=== PATIENT | female | born 1940 | race Caucasian/White ===

== ENCOUNTER 2025-02-05 13:36 | Emergency (ER) | payer OTHER, SELFPAY ==
[2025-02-05 13:56] VITALS: BP 190/93
[2025-02-05 14:17] LABS: Urine Albumin 2+ (Neg - Trace); Urine Bilirubin Negative (Negative); Urine Character Clear (Clear); Urine Color Yellow; Urine Glucose Negative (Negative); Urine Ketone Negative (Negative); Urine Leukocyte 1+ (Negative); Urine Nitrite Negative (Negative); Urine Occult Blood Negative (Negative); Urine Urobilinogen 1+ (Neg - 1+)
[2025-02-05 14:45] LABS: Urine Squamous Cell 0-2 /LPF (Few)
[2025-02-05 14:46] LABS: Urine Red Blood Cell 0-2 /HPF (0-2); Urine Urothelial Cell 0-2 /LPF (FEW)
--- NOTE | 2025-02-05 16:41 | ED.GENMED ---
History of Present Illness
General
Chief Complaint: Back Pain
Source: patient
Exam Limitations: none
Time Seen by Provider: 02/05/25 16:10
History of Present Illness
History of Present Illness:
84-year-old female presents with 3 months worth of lower back pain that radiates down the leg. She had x-rays done a couple weeks ago through her family doctor and was told she had arthritis in her back. She received a course of steroid which
helped some but the pain returned. There is no associated bowel or bladder dysfunction as a pertains to retention she does note increased urinary frequency but denies dysuria. She denies any numbness. No fever. No known injury. She is using
aspirin otherwise for the comfort.
Past History
Past History
ED Past Medical History: HTN
Social History
Tobacco: Former smoker
Alcohol: Occasional
Family History
Family History: Negative Diabetes, Hypertension or CAD
Phy Exam
Physical Exam
Physical Exam:
General: Well-appearing female no respiratory distress
HEENT: Normocephalic atraumatic
Heart: Regular rate and rhythm
Lungs: Clear no wheeze
Musculoskeletal exam: Tender over the lumbosacral junction on the right side. Good range of motion to the lower extremity. Negative straight leg raise to the lower extremity. Bilateral patellar reflexes 1+
Vascular: Pulse right foot
Skin is warm no rash
Course
Orders/Labs/Results
Orders:
Orders
02/05/25 14:11
Urinalysis Reflex To Culture Urgent
Date Specimen was Collected: 02/05/25
Time Specimen was Collected: 14:00
Urine Microscopic Reflex Cult Urgent
Urine Culture Urgent
ARVIN Source: U
Specimen Description:
Date Specimen was Collected: 02/05/25
Time Specimen was Collected: 14:00
Abnormal Lab Results
02/05/25
14:11
Leukocyte Esterase Rfl 1+ A
(Negative)
Urine Albumin (Reflex) 2+ A
(Neg - Trace)
Vital Signs
Initial and Last Documented VS:
Initial Vital Signs
Temp Pulse Resp BP Pulse Ox
98.5 F 65 18 190/93 97
02/05/25 13:56 02/05/25 13:56 02/05/25 13:56 02/05/25 13:56 02/05/25 13:56
Last Documented Vital Signs
Temp Pulse Resp BP Pulse Ox
98.5 F 65 18 190/93 97
02/05/25 13:56 02/05/25 13:56 02/05/25 13:56 02/05/25 13:56 02/05/25 13:56
MDM/Problems Addressed
Differential Diagnosis Includes:
Low back pain with radiation down the right leg. No red flags to suggest cauda equina. No fever to suggest infectious source. Suspect radiculopathy. She already took a dose of steroid. Will add gabapentin and continue Tylenol and ibuprofen.
Will refer her to back pain specialist. She is companied by her daughter who lives with her. She has been ambulatory.
*Critical Care Note
Total Time (30-74mins, 75-104mins- exclusive of procedures): Not Applicable
ED Attending Note
-
Portions of this chart may have been created with voice recognition software.� Occasional wrong word or��sound alike� substitutions may have occurred due to the inherent limitations of voice recognition software.
Discharge Plan
Departure
Patient Disposition: Home (Routine Discharge)
Date of Disposition: 02/05/25
Time of Disposition: 16:44
Patient with high blood pressure during this ER visit?: No
Discharge Problem:
Acute lumbar radiculopathy
Instructions: Radiculopathy (DC)
Prescriptions:
New
gabapentin 100 mg capsule
100 mg PO TID Qty: 21 0RF
No Action
meclizine 12.5 MG tablet
12.5 mg PO Q8HPRN PRN (Reason: dizziness)
furosemide 20 MG tablet
20 mg PO DAILYPRN PRN (Reason: swelling)
losartan [Cozaar] 100 MG tablet
100 mg PO DAILY
rosuvastatin 10 MG tablet
10 mg PO QPM
cholecalciferol (vitamin D3) 2,000 UNITS tablet
2,000 units PO DAILY
amlodipine 5 MG tablet
5 mg PO BID Qty: 60 0RF
aspirin 81 MG tablet,chewable
81 mg PO DAILY 0RF
Referrals:
Srinath Finnegan DO [Family Provider, Family Practice]
Lam Yeh MD [Active, Orthopedics]
Activity Restrictions/Additional Instructions:
Continue with Tylenol every 4 hours if needed for pain. You may add ibuprofen every 6 hours for pain. Use gabapentin up to 3 times a day as needed. Follow-up with back pain specialist. Return here if needed
Interventions
Interventions:
*Risk Screen - Suicide Last Done: 02/05/25 13:56
*General Assessment Last Done: 02/05/25 13:56
*Neglect/Abuse Screening Last Done: 02/05/25 14:16
*ED COVID-19 Vaccine History Last Done: 02/05/25 14:16
ED-Musculoskeletal Assessment Last Done: 02/05/25 14:16
Discharge Date and Time
Print Language: SAO TOMEAN
== END 2025-02-05 16:54 | disposition home or self-care (01) ==
LOC: EMR 13:36
PROVIDERS: EMERGENCY PHYSICIAN Emergency Medicine; FAMILY PHYSICIAN Family Medicine
DX: M54.16 Radiculopathy, lumbar region (principal); M79.604 Pain in right leg; I10 Essential (primary) hypertension; M13.88 Other specified arthritis, other site; Z87.891 Personal history of nicotine dependence; Z79.82 Long term (current) use of aspirin
CPT/HCPCS: 99283; 81003; 81015; 87086

== ENCOUNTER 2025-02-18 14:41 | Observation (INO) | payer OTHER, SELFPAY ==
[2025-02-18 09:40] VITALS: BP 117/98
--- NOTE | 2025-02-18 12:06 | ED.GENMED ---
History of Present Illness
General
Chief Complaint: Weakness
Source: patient and family
Exam Limitations: none
Time Seen by Provider: 02/18/25 10:32
Nursing documentation reviewed up to this point in time: agreed with
History of Present Illness
History of Present Illness:
Patient presents to ED secondary to worsening generalized weakness over the past 3 days, associated with multiple falls. Patient does have bruising noted over her left midfoot. Denies headache. Denies neck pain. Denies loss of sensation or
weakness. Patient unsure of why she may have fallen. However, patient was found lying on the bathroom floor, when her daughter visited this morning. In addition, patient also fell yesterday, prompting paramedics to visit her house for assistance.
Patient does report decreased appetite, and is unsure about her hydration status. Denies recent weight loss. No recent change in medications or diet. In addition, patient has been evaluated by [facility] orthopedic surgeon for ongoing back and
hip pain. There is an outpatient MRI ordered for this week.
Past History
Past History
ED Past Medical History: HTN
Social History
Tobacco: Former smoker
Alcohol: Occasional
Family History
Family History: Negative Diabetes, Hypertension or CAD
Review of Systems
Review of Systems
Allergies reviewed?: Yes
All Other Systems: ROS reviewed and negative except as documented in HPI and ROS
Constitutional: Reports no symptoms
Respiratory: Reports no symptoms
Cardiac: Reports no symptoms
ABD/GI: Reports no symptoms
Musculoskeletal: Reports no symptoms
Skin: Reports other (Foot ecchymosis)
Neurological: Reports weakness; Denies dizzy or headache
Phy Exam
Physical Exam
Physical Exam:
Physical Exam
General: mild distress, not acutely ill. afebrile. weak appearing
Head: nc/at. eomi
Neck: supple. normal range of motion.
Heart: s1/s2 regular rate and rhythm
Lungs: no acute respiratory distress. clear bilaterally
Abdomen: normal bowel sounds. not tender.
Neuro: alert and oriented x 3. no focal neurological deficits
Skin: ecchymosis/swelling noted over dorsal aspect of left foot, at level of midfoot
Psychiatric: well kept. interactive and cooperative
Extremities: no obvious deformity
Course
Orders/Labs/Results
Orders:
Orders
02/18/25 09:40
Electrocardiogram (*1) Urgent
Reason for Study: Chest Pain
EKG- Treatment ONCE
02/18/25 11:35
CT Head W/o Iv Contrast Urgent
Comment:
Reason For Exam: mental status change w falls
0.9% Sodium Chloride 500 ml [Nss] 500 ml IV BOLUS
CR Foot - Left Min 3 Views Urgent
Comment:
Reason For Exam: swelling/ecchymosis over midfoot
02/18/25 11:36
Physical Therapy Consult [Pt Eval And Treat] Urgent
Activity Level: Ambulate
02/18/25 12:28
Complete Blood Count/With Diff Urgent
02/18/25 12:36
Urinalysis Reflex To Culture Urgent
Date Specimen was Collected: 02/18/25
Time Specimen was Collected: 11:47
Urine Microscopic Reflex Cult Urgent
02/18/25 13:15
Comprehensive Metabolic Panel Urgent
Creatine Phosphokinase Urgent
Comment: ADD ON
Magnesium Urgent
02/18/25 13:56
0.9% Sodium Chloride 500 ml [Nss] 500 ml IV BOLUS
02/18/25 14:15
Admit/Transfer Patient As Directed
Co-Sign Provider:
Level of Care: Observation services
Assign to:: Medical/Surgical
Physician / Group: tristen
Diagnosis: falls
PRN Pain Medication Management As Directed
May give lesser potent ordered pain med per pt: Yes
preference::
Protocol:: Medication orders for pain may be administered in a
manner that supports deferring to patient preference
when the pt is:
- Requesting an ordered lesser potent pain medication.
Least to most potent pain medications are defined
as: acetaminophen < NSAID < tramadol < opioids
(morphine, oxycodone, hydromorphone).
- Requesting a lesser dose of the same medication IF
ORDERED.
- Requesting a less intrusive route of administration
if both routes are prescribed by the provider (PO <
IV).
02/18/25 14:16
Code Status As Directed
Resuscitation Status: Full Code
02/18/25 Dinner
Regular
At Your Request: Limited Participation
02/18/25 16:55
Acetaminophen [Tylenol] 650 mg PO Q4HPRN PRN
02/18/25 16:55
Add On- LAB Routine
Tests Added?: CK
Case Management Consult ONCE
Case Management Consult: Discharge Planning
Activity As Directed
Activity Level: As Tolerated
Vital Signs As Directed
Frequency: Per unit guidelines
DX Deep Vein Thrombosis Video Routine
02/18/25 20:00
Heparin 5,000 units SC Q12
02/19/25 06:00
Complete Blood Count/With Diff IN AM
Comprehensive Metabolic Panel IN AM
Abnormal Lab Results
02/18/25 02/18/25 02/18/25
12:28 12:36 13:15
MCHC 31.9 L g/dL
(33.0-37.0)
RDW 14.6 H %
(11.5-14.5)
Absolute Neuts (auto) 7.4 H 10^3/uL
(1.4-6.5)
Absolute Lymphs (auto) 0.9 L 10^3/uL
(1.2-3.4)
Absolute Monos (auto) 0.8 H 10^3/uL
(0.1-0.6)
Neutrophils % 79.8 H %
(42.2-75.2)
Lymphocytes % 10.1 L %
(20.5-51.1)
Chloride 109 H mmol/L
(98-107)
Glucose 110 H mg/dl
(70-99)
Calcium 10.7 H mg/dl
(8.4-10.2)
Total Bilirubin 1.5 H mg/dl
(0.2-1.3)
Urine Ketones 1+ A
(Negative)
Urine Albumin (Reflex) 1+ A
(Neg - Trace)
02/18/25 12:28
02/18/25 13:15
Vital Signs
Initial and Last Documented VS:
Initial Vital Signs
Temp Pulse Resp BP Pulse Ox
98 F 65 16 117/98 95
02/18/25 09:40 02/18/25 09:40 02/18/25 09:40 02/18/25 09:40 02/18/25 09:40
Last Documented Vital Signs
Temp Pulse Resp BP Pulse Ox
97.9 F 72 20 132/73 98
02/18/25 19:00 02/18/25 19:58 02/18/25 19:00 02/18/25 19:58 02/18/25 19:00
MDM/Problems Addressed
MDM/Problems Addressed:
Patient evaluated by physical therapy, who feels the patient is unstable to discharge home at this time and recommends acute rehab treatment. Discussed with case management, who unfortunately does not feel the patient can be transferred to acute
rehab facility today. In addition, in light of patient's ongoing pain which may be contributory falls without clear etiology, there is a consideration given to potentially obtain MRI as an inpatient. As such, will reach out to hospitalist service
for further evaluation and treatment.
*Critical Care Note
Total Time (30-74mins, 75-104mins- exclusive of procedures): Not Applicable
ED Attending Note
-
Portions of this chart may have been created with voice recognition software.� Occasional wrong word or��sound alike� substitutions may have occurred due to the inherent limitations of voice recognition software.
Discharge Plan
Departure
Patient Disposition: Admit
Date of Disposition: 02/18/25
Time of Disposition: 14:03
Presentation/result/management discussed w/ accepting MD/DO: Hospitalist
Patient with high blood pressure during this ER visit?: No
Discharge Problem:
Weakness, Ambulatory dysfunction, Hip pain
Interventions
Interventions:
*Risk Screen - Suicide Last Done: 02/18/25 09:36
*General Assessment Last Done: 02/18/25 09:36
*ED COVID-19 Vaccine History Last Done: 02/18/25 10:00
*Nursing Disposition Last Done: 02/18/25 16:41
ED- Cardiac Assessment Last Done: 02/18/25 10:00
ED-Musculoskeletal Assessment Last Done: 02/18/25 10:00
ED- Neurological Assessment Last Done: 02/18/25 10:00
ED- Pulmonary Assessment Last Done: 02/18/25 10:00
Discharge Date and Time
Discharge Date/Time: 02/18/25 16:41
[2025-02-18] MEDS: NSS 500 IV ×2 (12:29→14:31)
[2025-02-18 12:42] LABS: % Basophils 0.3 % (0-2); % Eosinophils 1.2 % (0-6); % Immature Granulocytes 0.2 % (0-0.5); % Lymphocytes 10.1 % (20.5-51.1); % Monocytes 8.4 % (1.7-9.3); % Neutrophils 79.8 % (42.2-75.2); Absolute Eosinophils 0.1 10^3/uL (0-0.7); Absolute Lymphocytes 0.9 10^3/uL (1.2-3.4); Absolute Monocytes 0.8 10^3/uL (0.1-0.6); Absolute Neutrophils 7.4 10^3/uL (1.4-6.5); Hematocrit 44.8 % (37.0-47.0); Hemoglobin 14.3 g/dL (12.0-16.0); Mean Corp Hgb Conc. 31.9 g/dL (33.0-37.0); Mean Corpuscular Volume 94.1 fL (81.0-99.0); Mean Platelet Volume 9.8 fL (7.4-10.4); Nucleated Red Blood Cells % 0 %; Platelet Count 223 10^3/uL (130-400); Red Blood Cell Count 4.76 10^6/uL (4.20-5.40); Red Cell Dist. Width 14.6 % (11.5-14.5); White Blood Cell Count 9.2 10^3/uL (4.8-10.8)
[2025-02-18 13:29] LABS: Urine Albumin 1+ (Neg - Trace); Urine Bilirubin Negative (Negative); Urine Color Yellow; Urine Glucose Negative (Negative); Urine Ketone 1+ (Negative); Urine Leukocyte Negative (Negative); Urine Nitrite Negative (Negative); Urine Occult Blood Negative (Negative); Urine Specific Gravity 1.015 (<1.030); Urine Urobilinogen Negative (Neg - 1+)
[2025-02-18 13:37] LABS: Urine Character Slightly Cloudy (Clear)
[2025-02-18 13:39] LABS: ALT (SGPT) 13 U/L (0-35); AST (SGOT) 22 U/L (14-36); Albumin 4.4 g/dl (3.5-5.0); Alkaline Phosphatase 53 U/L (38-126); Blood Urea Nitrogen 16 mg/dl (7-17); Calcium 10.7 mg/dl (8.4-10.2); Carbon Dioxide 28 mmol/L (22-30); Chloride 109 mmol/L (98-107); Glucose 110 mg/dl (70-99); Magnesium 2.2 mg/dl (1.6-2.3); Potassium 3.9 mmol/L (3.5-5.1); Sodium 144 mmol/L (135-145); Total Bilirubin 1.5 mg/dl (0.2-1.3); Total Protein 7.5 g/dl (6.3-8.2); eGFR > 60.00
[2025-02-18 13:57] VITALS: O2SAT 95
--- NOTE | 2025-02-18 14:26 | HPS.HSE ---
Addendum entered and electronically signed by Chester Jackson MD 02/18/25 18:49:
PRN labetalol for Blood Pressure 190.
Original Note:
Family Physician
-
Family Physician: Srinath Finneagn
Chief Complaint
-
falls
History of Present Illness
84-year-old female with past medical history of hypertension, hyperlipidemia, possible TIA, uterine cancer, presenting for generalized weakness over the past 3 days associate with multiple falls unwitnessed by daughter. Patient does have bruising
noted over her left midfoot. Denies headache. Denies neck pain. Denies loss of sensation or weakness. Patient unsure why she may have fallen however she was found lying on the bathroom floor when her daughter visited this morning. She also fell
yesterday prompting paramedics to visit her house. She has decreased appetite. Denies weight loss.
She has been having with walker for the past several weeks.
She has been evaluated by [facility] orthopedic surgery for ongoing back and hip pain. She has outpatient MRI ordered this week. Falls have been occurring since this time.
Patient complains of increased urinary frequency. Denies any burning or pain. No fevers or chills. No cough, vomiting or diarrhea.
Medical History
Past Medical History
Past Medical History: Reports Other ( hypertension, hyperlipidemia, possible TIA, uterine cancer,)
Past Surgical History: Reports None
Social History
Tobacco: Non-smoker
Alcohol: None
Drug: None
Family History
Family History: Not pertinent
Allergies / Home Medications
Allergies reflects when Allergies were last updated in [email or web address].
Home Medications with original date entered in [email or web address]
Allergy/Medication List:
Allergies
Allergy/AdvReac Type Severity Reaction Status Date / Time
No Known Allergies Allergy Verified 02/18/25 09:45
Home Medications
cholecalciferol (vitamin D3) 50 mcg (2,000 unit) tablet 2,000 units PO DAILY Supplement 02/28/21
furosemide 20 mg tablet 20 mg PO DAILYPRN PRN swelling 02/28/21
losartan 100 mg tablet (Cozaar) 100 mg PO DAILY Heart disease/condition 02/28/21
meclizine 12.5 mg tablet 12.5 mg PO Q8HPRN PRN dizziness 02/28/21
rosuvastatin 10 mg tablet 10 mg PO QPM High cholesterol 02/28/21
amlodipine 5 mg tablet 5 mg PO BID #60 tabs 03/03/21
gabapentin 100 mg capsule 100 mg PO TID #21 caps 02/05/25
acetaminophen 325 mg tablet (Tylenol) 325 mg PO DAILY 02/18/25
ibuprofen 200 mg tablet (Advil) 400 mg PO DAILYPRN PRN mild pain 02/18/25
Review of Systems
-
History Source: Patient
A 12 point ROS was completed and negative except as noted: Yes
Constitutional: Reports No Symptoms
EENT: Reports No Symptoms
Respiratory: Reports No Symptoms
Cardiac: Reports No Symptoms
Abdomen/GI: Reports No Symptoms
: Reports See HPI
Musculoskeletal: Reports See HPI
Skin: Reports No Symptoms
Neurological: Reports No Symptoms
Endocrine: Reports No Symptoms
Hematologic/Lymphatic: Reports No Symptoms
Psych: Reports No Symptoms
Physical Exam
Vital Signs
Vital Signs
Temp Pulse Resp BP Pulse Ox
98 F 65 16 117/98 95
02/18/25 09:40 02/18/25 09:40 02/18/25 09:40 02/18/25 09:40 02/18/25 09:40
Physical Exam
General: Well Developed, Well Nourished and No Apparent Distress
HEENT: NormoCephalic, Moist mucous membranes and Atraumatic
Respiratory: Clear
Cardiac: S1/S2 and Regular Rhythm; No Murmur or Rub
GI: Soft, Non Tender, Non Distended and Normal Bowel Sounds; No Organomegaly
Rectal: Deferred by Provider
Musculoskeletal: No Clubbing, No Cyanosis and No Edema
Skin: No Rash
Neuro: Nonfocal/grossly intact
Laboratory Results
-
02/18/25 12:28
02/18/25 13:15
Laboratory Results
Total Bilirubin 1.5 mg/dl (0.2-1.3) H 02/18/25 13:15
AST 22 U/L (14-36) 02/18/25 13:15
ALT 13 U/L (0-35) 02/18/25 13:15
Alkaline Phosphatase 53 U/L (38-126) 02/18/25 13:15
Data Reviewed
-
Lab Data: Labs Reviewed by me
Old Records: Reviewed
Impression/Plan
-
IMPRESSION:
PLAN:
# Ambulatory dysfunction/falls secondary to lower back/hip pain
- CT head shows no acute abnormality
-Foot x-ray pending
-Check CK
-IV fluids given
- As per PT patient unsafe to be discharged home
- Case management
# Lower back/hip pain
- Outpatient MRI scheduled by orthopedics
# Urinary frequency
- Check urinalysis
# Left ankle injury
- Ankle x-ray pending
Essential hypertension
- Continue amlodipine, losartan
Hyperlipidemia
- Continue statin
History of possible TIA
- Continue aspirin
Uterine cancer
Full code
DVT prophylaxis�heparin
Regular diet
[2025-02-18 15:23] LABS: Urine Amorphous Seen; Urine Squamous Cell 0-2 /LPF (Few); Urine Urothelial Cell 0-2 /LPF (FEW)
[2025-02-18 15:24] LABS: Urine Red Blood Cell 0-2 /HPF (0-2); Urine White Cell 0-2 /HPF (0-5)
--- NOTE | 2025-02-18 15:46 | CM ---
CM met with pt and daughter bedside. Lives with daughter, [facility], [address], first floor half bath, full flight to BR and full bath
Typically ambulates independently with walker, also has quad cane
Typically independent with personal care
Daughter reports frequent falls over past few weeks, daughter now needing to assist with personal care.
Alert and oriented at baseline, daughter denies cognitive impairment
Denies financial insecurities
Pt has history at [facility] is first choice but agreeable to additional referrals
PCP: Srinath Finnegan - recently retired, under care of new partner, name unknown
Pharmacy: [facility]
SNF recs by PT, family in agreement
Referral sent via [facility] and pending.
Pt will require IBC Auth
STEEL completed and copy provided
Dispo: SNF pending auth
--- NOTE | 2025-02-18 16:55 | PTCARENOTE ---
Received pt from ED via stretcher. Daughter at bedside. Stretcher placed next to bed, pt pulled over to bed with assist x3. AAOx 1-2. Confused, forgetful. Bed alarm placed and plugged in. Daughter instructed on how to use call hussein and phone, pt
unable to verbalize understanding. Incontinent, purewick in place. Assessed and unable to orient to room. Call hussein within close reach.
[2025-02-18 17:01] VITALS: BMI 28.2
[2025-02-18 17:30] VITALS: BP 190/117
[2025-02-18 17:37] LABS: Creatine Phosphokinase 45 U/L (30-135)
[2025-02-18] MEDS: TRANDATE 10 MG IV (17:57)
--- NOTE | 2025-02-18 17:57 | PTCARENOTE ---
Blood pressure increased, made aware, new order provided, see MAR. Will recheck in one hour.
[2025-02-18 19:00] VITALS: BP 135/71
[2025-02-18] MEDS: HEPARIN 5000 UNITS SC (19:54)
[2025-02-18] MEDS: DESENEX/MITRAZOL/ZEASORB 1 APPLIC TOPICAL (19:54)
[2025-02-18] MEDS: NORVASC 5 MG PO (19:58)
[2025-02-18 23:00] VITALS: BP 164/97
[2025-02-19] VITALS (8 sets, daily range): BP systolic 115–175; BP diastolic 58–106; PULSE 74; O2SAT 98
[2025-02-19] MEDS: TRANDATE 10 MG IV (04:15)
[2025-02-19 06:55] LABS: % Basophils 0.5 % (0-2); % Eosinophils 4.1 % (0-6); % Immature Granulocytes 0.4 % (0-0.5); % Lymphocytes 19.9 % (20.5-51.1); % Monocytes 11.5 % (1.7-9.3); % Neutrophils 63.6 % (42.2-75.2); Absolute Eosinophils 0.2 10^3/uL (0-0.7); Absolute Lymphocytes 1.1 10^3/uL (1.2-3.4); Absolute Monocytes 0.6 10^3/uL (0.1-0.6); Absolute Neutrophils 3.5 10^3/uL (1.4-6.5); Hematocrit 38.7 % (37.0-47.0); Hemoglobin 12.5 g/dL (12.0-16.0); Mean Corp Hgb Conc. 32.3 g/dL (33.0-37.0); Mean Corpuscular Hgb 30.2 pg (27.0-31.0); Mean Corpuscular Volume 93.5 fL (81.0-99.0); Nucleated Red Blood Cells % 0 %; Platelet Count 204 10^3/uL (130-400); Red Blood Cell Count 4.14 10^6/uL (4.20-5.40); Red Cell Dist. Width 14.6 % (11.5-14.5); White Blood Cell Count 5.6 10^3/uL (4.8-10.8)
[2025-02-19 07:09] LABS: ALT (SGPT) 10 U/L (0-35); AST (SGOT) 14 U/L (14-36); Albumin 3.4 g/dl (3.5-5.0); Alkaline Phosphatase 48 U/L (38-126); Blood Urea Nitrogen 16 mg/dl (7-17); Calcium 10.1 mg/dl (8.4-10.2); Carbon Dioxide 24 mmol/L (22-30); Chloride 114 mmol/L (98-107); Estimated Creatinine Clearance 45 ml/min; Glucose 111 mg/dl (70-99); Potassium 3.4 mmol/L (3.5-5.1); Sodium 143 mmol/L (135-145); Total Bilirubin 1.2 mg/dl (0.2-1.3); eGFR > 60.00
[2025-02-19] MEDS: KCL 40 MEQ PO (08:45)
[2025-02-19] MEDS: VITAMIN D3 (cholecalciferol) 50 MCG PO (08:45)
[2025-02-19] MEDS: TYLENOL 325 MG PO (08:45)
[2025-02-19] MEDS: NORVASC 5 MG PO ×2 (08:45→22:03)
[2025-02-19] MEDS: HEPARIN 5000 UNITS SC ×2 (08:45→22:02)
[2025-02-19] MEDS: COZAAR 100 MG PO (08:45)
[2025-02-19] MEDS: DESENEX/MITRAZOL/ZEASORB 1 APPLIC TOPICAL ×2 (08:49→22:02)
--- NOTE | 2025-02-19 10:44 | CM ---
CM met with pt and daughter bedside. Advanced Directive packet given.
[2025-02-19] MEDS: NEURONTIN 100 MG PO (13:01)
--- NOTE | 2025-02-19 13:19 | CM ---
Case Management following for discharge to SNF; [facility] is pt's preferred facility.
[facility] has accepted, pending bed availability at discharge.
--- NOTE | 2025-02-19 15:41 | W.PN.HOSP.TC ---
Today's Communication/Plan
-
Assessment / Plan
Assessment / Plan
General: No Apparent Distress, Comfortable and Conversant
HEENT: NormoCephalic, Moist mucous membranes, Atraumatic
Respiratory: Clear and Non Labored Respirations
Cardiac: S1/S2 and Regular Rhythm; No Rub or Gallop
GI: Soft, Non Tender, Non Distended and Normal Bowel Sounds
Musculoskeletal: No Edema, no deformity, right hip joint tenderness with passive and active range of motion, left knee joint tenderness with active range of motion
Skin: Warm and dry
: NO [place]
Neuro: Awake, Alert, Nonfocal/grossly intact
Psych: Calm and cooperative
Ms. Harris is an 84-year-old female with a medical history of hypertension, TIA, arthritis (status post bilateral TKA), and uterine cancer who presented after weakness and multiple falls at home for 3 days prior to arrival. She had some bruising
over her left midfoot but no acute abnormalities on x-ray. Patient does not remember how she fell. She is being followed by [facility] orthopedics in the outpatient setting for ongoing back and hip pain and has an outpatient MRI scheduled in the
near future for further evaluation. She was admitted for SNF placement.
Ambulatory dysfunction:
- No focal deficits on exam, right hip and left knee joint movement significantly limited by pain, no evidence of infection
- Continue multimodal pain treatment
- PT/OT recommending SNF, placement pending
- Will need ongoing outpatient orthopedic follow-up and MRI
Hypertension:
- Well-controlled with home amlodipine 5 mg twice daily and losartan 100 mg daily
Cerebrovascular disease:
- Continue low-dose aspirin and statin
DVT prophylaxis: Subcu heparin
CODE STATUS: Full code
Total time spent on today's encounter was 45 minutes
Anticipated Discharge: Within 24 hours
Subjective/Interval History
-
Date of Service: February 19, 2025
Patient was seen and examined at bedside this morning. No acute distress. Awaiting SNF placement.
Objective Data
-
Labs:
Laboratory Results
02/19/25
06:34
WBC 5.6
Hgb 12.5
Hct 38.7
Plt Count 204
Sodium 143
Potassium 3.4 L
Chloride 114 H
Carbon Dioxide 24
BUN 16
Creatinine 0.9
Glucose 111 H
Calcium 10.1
Total Bilirubin 1.2
AST 14
ALT 10
Alkaline Phosphatase 48
Vital Signs:
Vital Signs
Temp Pulse Resp BP Pulse Ox
97.7 F 82 16 115/58 96
02/19/25 15:04 02/19/25 15:04 02/19/25 15:04 02/19/25 15:04 02/19/25 15:04
Review of Systems
-
History Source: Patient
All other systems: Reviewed and negative
Musculoskeletal: Reports Joint Pain (Right hip and left knee pain)
Physical Exam
-
General: No Apparent Distress
--- NOTE | 2025-02-19 15:43 | CM ---
CM met with pt and daughter to discuss discharge planning. Pt has been accepted for transfer to [facility] for SNF. Insurance authorization will be obtained and transportation arranged tomorrow.
IMM reviewed with pt and her daughter; IMM signed and copy placed in chart.
Plan: Transfer to [facility] tomorrow after insurance authorization obtained.
--- NOTE | 2025-02-19 16:32 | CM ---
CM met with pt and daughter to discuss discharge planning. Pt has been accepted for transfer to [facility] for SNF. Insurance authorization will be obtained and transportation arranged tomorrow.
Plan: Transfer to [facility] tomorrow after insurance authorization obtained.
[2025-02-19] MEDS: DICLOFENAC 1% TOPICAL GEL 100 GRAM TOPICAL (17:01)
[2025-02-19] MEDS: CRESTOR 10 MG PO (17:01)
[2025-02-19] MEDS: DICLOFENAC 1% TOPICAL GEL 4 GRAM TOPICAL (22:13)
[2025-02-20 03:00] VITALS: BP 171/92
--- NOTE | 2025-02-20 04:18 | DOWNTIME ---
Addendum entered by Heidi Flores RN 02/20/25 14:08:
Please note the [employer] client [employer] Supervisor Downtime was on 02/21/2025 from 0100 to 02/20/2025.
Original Note:
There was a [employer] Client [employer]visor Downtime on 02/19/2025 from 0100 to 02/20/2025 at 0415. Downtime documentation of patient's care, including medication administrations, has been reconciled in the electronic record per guidelines. Refer to the
patient's paper chart under the miscellaneous tab to see printed paper medication records and downtime forms.
[2025-02-20 07:30] VITALS: BP 161/94
[2025-02-20] MEDS: COZAAR 100 MG PO (08:51)
[2025-02-20] MEDS: HEPARIN 5000 UNITS SC (08:52)
[2025-02-20] MEDS: NORVASC 5 MG PO (08:52)
[2025-02-20] MEDS: DESENEX/MITRAZOL/ZEASORB 1 APPLIC TOPICAL (08:52)
[2025-02-20] MEDS: TYLENOL 325 MG PO (08:52)
[2025-02-20] MEDS: ASPIR LOW (ENTERIC COATED) 81 MG PO (08:52)
[2025-02-20] MEDS: VITAMIN D3 (cholecalciferol) 50 MCG PO (08:52)
[2025-02-20] MEDS: DICLOFENAC 1% TOPICAL GEL 100 GRAM TOPICAL (08:55)
--- NOTE | 2025-02-20 10:01 | CM ---
Addendum entered by Makenna Reyes 02/20/25 12:19:
[facility] Report:[phone]
[facility]
Addendum entered by Makenna Reyes 02/20/25 10:49:
[facility] authorization [id number]
Original Note:
CM contacted [facility] for [facility] authorization; authorization completed with Herman at [facility] and he will call back with authorization number. Plan for transfer to [facility] today via ambulance.
--- NOTE | 2025-02-20 11:15 | W.DCSUMMARY ---
Discharge Summary
Discharge Data
Date of Admission: 02/18/25
Date of Discharge: 02/20/25
Total time spent discharging patient (in min): 44
-
Pending Results: No
Hospital Course
Ms. Harris is an 84-year-old female with a medical history of hypertension, TIA, arthritis (status post bilateral TKA), and uterine cancer who presented after weakness and multiple falls at home for 3 days prior to arrival. She had some bruising
over her left midfoot but no acute abnormalities on x-ray. Patient does not remember how she fell. She is being followed by [facility] orthopedics in the outpatient setting for ongoing back and hip pain and has an outpatient MRI scheduled in the
near future for further evaluation. She was admitted for SNF placement. No focal deficits were noted on exam although her movement was significantly limited by pain in her right hip joint and left knee. Her labs were generally unremarkable. Her
blood pressure was initially elevated however was much better controlled after continuing her home losartan and amlodipine. She was evaluated by PT/OT who recommended SNF which has been arranged. She was medically stable at time of hospital
discharge. She will need ongoing follow-up with her primary care physician.
General: No Apparent Distress, Comfortable and Conversant
HEENT: NormoCephalic, Moist mucous membranes, Atraumatic
Respiratory: Clear and Non Labored Respirations
Cardiac: S1/S2 and Regular Rhythm; No Rub or Gallop
GI: Soft, Non Tender, Non Distended and Normal Bowel Sounds
Musculoskeletal: No Edema, no deformity, right hip joint tenderness with passive and active range of motion, left knee joint tenderness with active range of motion
Skin: Warm and dry
: NO [place]
Neuro: Awake, Alert, Nonfocal/grossly intact
Psych: Calm and cooperative
Discharge Plan
-
Patient Disposition: Fpc/SNF
Discharge Diagnosis/Procedures: Ambulatory dysfunction
Diet: Regular
Activity: With assistance
Activity Restrictions/Additional Instructions:
Ms. Harris is an 84-year-old female with a medical history of hypertension, TIA, arthritis (status post bilateral TKA), and uterine cancer who presented after weakness and multiple falls at home for 3 days prior to arrival. She had some bruising
over her left midfoot but no acute abnormalities on x-ray. Patient does not remember how she fell. She is being followed by [facility] orthopedics in the outpatient setting for ongoing back and hip pain and has an outpatient MRI scheduled in the
near future for further evaluation. She was admitted for SNF placement. No focal deficits were noted on exam although her movement was significantly limited by pain in her right hip joint and left knee. Her labs were generally unremarkable. Her
blood pressure was initially elevated however was much better controlled after continuing her home losartan and amlodipine. She was evaluated by PT/OT who recommended SNF which has been arranged. She was medically stable at time of hospital
discharge. She will need ongoing follow-up with her primary care physician.
Referrals:
Srinath Finnegan DO [Family Provider, [facility]]
Prescriptions:
New
aspirin 81 mg Tablet,Delayed Release (Dr/Ec)
81 mg PO DAILY 30 Days Qty: 30 0RF
Continued
meclizine 12.5 MG tablet
12.5 mg PO Q8HPRN PRN (Reason: dizziness)
furosemide 20 MG tablet
20 mg PO DAILYPRN PRN (Reason: swelling)
losartan [Cozaar] 100 MG tablet
100 mg PO DAILY
rosuvastatin 10 MG tablet
10 mg PO QPM
cholecalciferol (vitamin D3) 2,000 UNITS tablet
2,000 units PO DAILY
amlodipine 5 MG tablet
5 mg PO BID Qty: 60 0RF
acetaminophen [Tylenol] 325 mg Tablet
325 mg PO DAILY
ibuprofen [Advil] 200 mg Tablet
400 mg PO DAILYPRN PRN (Reason: mild pain)
gabapentin 100 mg capsule
100 mg PO DAILY@1300
Discharge Orders:
Discharge Patient (As Directed); Ordered 02/20/25
Ordered By: Ricardo Patel
Discharge Date and Time
Print Language: ARABIC
[2025-02-20 11:20] VITALS: BP 159/92
--- NOTE | 2025-02-20 13:13 | CM ---
Addendum entered by Makenna Reyes 02/20/25 13:33:
Pt's daughter Will notified that ambulance arrived and her mother is on her way to [facility]. Daughter was thankful for the update and will go to [facility] later this afternoon.
Original Note:
CM spoke with pt's daughter to make her aware of discharge plans to [facility]. Ambulance transport arranged; awaiting their arrival.
CM to contact pt's daughter to let her know when the ambulance is leaving to take her to [facility]. Daughter intends to visit after her mother is settled.
Plan: Discharge to [facility] for SNF rehab.
[facility] Report:[phone]
[facility]
== END 2025-02-20 14:01 ==
LOC: 3 WEST ACU 14:41
PROVIDERS: Pediatrics Neonatal-Perinatal Medicine; ADMITTING PHYSICIAN Hospitalist; ATTENDING PHYSICIAN Internal Medicine; EMERGENCY PHYSICIAN Emergency Medicine; FAMILY PHYSICIAN Family Medicine
DX: R26.2 Difficulty in walking, not elsewhere classified (principal); R53.1 Weakness; Z87.891 Personal history of nicotine dependence; I10 Essential (primary) hypertension; Z79.899 Other long term (current) drug therapy
CPT/HCPCS: 70450; 73630; 80053; 81003; 81015; 82550; 83735; 85025; 93005; 96360; 97116; 97167; 97530; 99285; G0378

== ENCOUNTER → 2025-02-25 09:23 | Outpatient (REF) | payer OTHER, SELFPAY ==
[2025-02-25 10:30] LABS: % Basophils 0.5 % (0-2); % Eosinophils 4.8 % (0-6); % Immature Granulocytes 0.2 % (0-0.5); % Lymphocytes 25.8 % (20.5-51.1); % Monocytes 10.4 % (1.7-9.3); % Neutrophils 58.3 % (42.2-75.2); Absolute Eosinophils 0.3 10^3/uL (0-0.7); Absolute Lymphocytes 1.5 10^3/uL (1.2-3.4); Absolute Monocytes 0.6 10^3/uL (0.1-0.6); Absolute Neutrophils 3.3 10^3/uL (1.4-6.5); Hematocrit 38.2 % (37.0-47.0); Hemoglobin 12.2 g/dL (12.0-16.0); Mean Corp Hgb Conc. 31.9 g/dL (33.0-37.0); Mean Corpuscular Hgb 29.8 pg (27.0-31.0); Mean Corpuscular Volume 93.2 fL (81.0-99.0); Mean Platelet Volume 10.3 fL (7.4-10.4); Nucleated Red Blood Cells % 0 %; Platelet Count 271 10^3/uL (130-400); Red Cell Dist. Width 14.2 % (11.5-14.5); White Blood Cell Count 5.7 10^3/uL (4.8-10.8)
[2025-02-25 15:17] LABS: Blood Urea Nitrogen 30 mg/dl (7-17); Calcium 10.2 mg/dl (8.4-10.2); Carbon Dioxide 21 mmol/L (22-30); Chloride 114 mmol/L (98-107); Glucose 90 mg/dl (70-99); Potassium 4.3 mmol/L (3.5-5.1); Sodium 141 mmol/L (135-145)
== END ==
LOC: OLABP 09:23
PROVIDERS: ATTENDING PHYSICIAN Family Medicine
DX: I10 Essential (primary) hypertension (principal); M54.16 Radiculopathy, lumbar region; E78.2 Mixed hyperlipidemia; C55 Malignant neoplasm of uterus, part unspecified; M17.0 Bilateral primary osteoarthritis of knee
CPT/HCPCS: 36415; 80048; 85025

== ENCOUNTER → 2025-03-01 10:02 | Outpatient (REF) | payer OTHER, SELFPAY ==
[2025-03-01 11:28] LABS: Blood Urea Nitrogen 31 mg/dl (7-17); Calcium 10.1 mg/dl (8.4-10.2); Carbon Dioxide 23 mmol/L (22-30); Chloride 114 mmol/L (98-107); Glucose 76 mg/dl (70-99); Potassium 4.7 mmol/L (3.5-5.1); Sodium 141 mmol/L (135-145); eGFR > 60.00
== END ==
LOC: OLABP 10:02
PROVIDERS: ATTENDING PHYSICIAN Family Medicine
DX: M54.16 Radiculopathy, lumbar region (principal); E78.2 Mixed hyperlipidemia; I10 Essential (primary) hypertension; C55 Malignant neoplasm of uterus, part unspecified; M17.0 Bilateral primary osteoarthritis of knee
CPT/HCPCS: 36415; 80048

== ENCOUNTER → 2025-03-06 17:57 | Outpatient (REF) | payer OTHER, SELFPAY ==
[2025-03-06 18:20] LABS: Urine Character Slightly Cloudy (Clear)
[2025-03-06 18:35] LABS: Urine Squamous Cell 16-20 /LPF (Few); Urine Urothelial Cell 0-2 /LPF (FEW)
[2025-03-06 18:36] LABS: Urine Red Blood Cell 0-2 /HPF (0-2)
== END ==
LOC: OLABP 17:57
PROVIDERS: ATTENDING PHYSICIAN Family Medicine
DX: M54.16 Radiculopathy, lumbar region (principal); E78.2 Mixed hyperlipidemia; I10 Essential (primary) hypertension; C55 Malignant neoplasm of uterus, part unspecified
CPT/HCPCS: 81003; 81015; 87086

== ENCOUNTER → 2025-03-07 09:38 | Outpatient (REF) | payer OTHER, SELFPAY ==
[2025-03-07 12:11] LABS: Blood Urea Nitrogen 27 mg/dl (7-17); Calcium 10.7 mg/dl (8.4-10.2); Carbon Dioxide 24 mmol/L (22-30); Chloride 110 mmol/L (98-107); Glucose 80 mg/dl (70-99); Potassium 4.5 mmol/L (3.5-5.1); Sodium 140 mmol/L (135-145); eGFR > 60.00
== END ==
LOC: OLABP 09:38
PROVIDERS: ATTENDING PHYSICIAN Family Medicine
DX: M54.16 Radiculopathy, lumbar region (principal); E78.2 Mixed hyperlipidemia; I10 Essential (primary) hypertension; C55 Malignant neoplasm of uterus, part unspecified; M17.0 Bilateral primary osteoarthritis of knee
CPT/HCPCS: 36415; 80048

== ENCOUNTER → 2025-03-09 10:34 | Outpatient (REF) | payer OTHER, SELFPAY ==
[2025-03-09 11:26] LABS: Urine Character Clear (Clear)
[2025-03-09 12:20] LABS: Urine Red Blood Cell 0-2 /HPF (0-2); Urine White Cell 0-2 /HPF (0-5)
== END ==
LOC: OLABP 10:34
PROVIDERS: ATTENDING PHYSICIAN Family Medicine
DX: M54.16 Radiculopathy, lumbar region (principal); E78.2 Mixed hyperlipidemia; I10 Essential (primary) hypertension; C55 Malignant neoplasm of uterus, part unspecified; M17.0 Bilateral primary osteoarthritis of knee
CPT/HCPCS: 81003; 81015; 87086

== ENCOUNTER → 2025-04-24 08:18 | Outpatient (REF) | payer OTHER, SELFPAY | LOC: PAVMRI 08:18 | PROVIDERS: ATTENDING PHYSICIAN Physical Medicine & Rehabilitation; FAMILY PHYSICIAN Family Medicine | DX: M54.16 Radiculopathy, lumbar region (principal) | CPT/HCPCS: 72148 ==

== ENCOUNTER → 2025-04-24 09:59 | Outpatient (REF) | payer OTHER, SELFPAY ==
[2025-04-24 12:12] LABS: ALT (SGPT) 10 U/L (0-35); AST (SGOT) 18 U/L (14-36); Albumin 4.2 g/dl (3.5-5.0); Alkaline Phosphatase 61 U/L (38-126); Blood Urea Nitrogen 33 mg/dl (7-17); Calcium 10.4 mg/dl (8.4-10.2); Carbon Dioxide 22 mmol/L (22-30); Chloride 110 mmol/L (98-107); Glucose 102 mg/dl (70-99); Iron 67 ug/dl (37-170); Magnesium 2.3 mg/dl (1.6-2.3); Potassium 4.3 mmol/L (3.5-5.1); Sodium 140 mmol/L (135-145); Total Protein 7.2 g/dl (6.3-8.2); eGFR 44.91
[2025-04-24 12:22] LABS: Total Iron Binding Capacity 357 ug/dl (265-497)
[2025-04-24 12:42] LABS: Ferritin 17.1 ng/ml (11.1-264.0)
== END ==
LOC: REG 09:59
PROVIDERS: ATTENDING PHYSICIAN Nurse Practitioner Adult Health
DX: R06.02 Shortness of breath (principal); I49.3 Ventricular premature depolarization; N18.32 Chronic kidney disease, stage 3b; D50.9 Iron deficiency anemia, unspecified; E83.52 Hypercalcemia; R60.0 Localized edema
CPT/HCPCS: 36415; 71046; 80053; 82728; 83540; 83550; 83735; 83880; 83970; 84100